=== PATIENT | male | born 1990 | race Caucasian/White ===

== ENCOUNTER 2017-05-24 19:34 | Emergency (ER) | payer MEDICARE, MEDICAID ==
[~2017-05-24 19:34] MED LIST: ANAFRANIL25 MG PO; BENADRYL-DPS25 MG PO; CATAPRES0.2 MG PO; CLONAZEPAM2 MG PO; COMPAZINE DPS5 MG PO; DILANTIN DPS100 MG PO; HYDROCODON-ACE1 EAC4 PO; LAMICTAL DPS100 MG PO; MILK OF MAGNESI10 ML PO; MOTRIN-DPS600 MG PO; PRILOSEC DPS20 MG PO; SENOKOT S1 TAB PO; SURFAK DPS240 MG PO; THERA1 EACH PO; TOPAMAX100 MG PO; TOPAMAX200 M1 PO; [UNRECOGNIZED DRUG - OTHER] PO
--- NOTE | 2017-06-01 15:15 | ER ---
ADMIT: 05/24/2017 [place] [facility] [place] [id number] [address] [id number] JULIO PALENCIA [address] [facility] [place] [address] Emergency Room Report SEX: M AGE: 26 : 1990 DATE: 05/24/2017 ADDENDUM: This patient was originally seen by Nancy Marie. He is nonverbal, autistic, coming in with abdominal pain. He has vomited every day for the last 3 days in the morning, but he does seem to eat in the evening and afternoon. On physical exam, his abdomen is soft. CT scan of his abdomen showed a very distended bladder. We did have him urinate and then did a postvoid bladder scan, which showed 100 mL in the bladder. He did void quite a large amount. His white count was normal. He does have a history of having pancreatitis, but he had a normal lipase today. DIAGNOSIS: Urinary retention. We will have him follow up with his primary as needed. He already has a scheduled appointment this week. Please see my T- sheet. SAMINA Valiente / Lencho Hassan MD / aren JOB #: [id number] CC: Lencho Hassan MD, Attending Physician Sameer Snow MD, Family Physician
== END 2017-05-24 22:50 | disposition home or self-care (01) ==
LOC: ER 19:34
PROC: BT20ZZZ Computerized Tomography (CT Scan) of Bladder (ICD-10-PCS; principal; 2017-05-24)
DX: R33.9 Retention of urine, unspecified (principal); G40.909 Epilepsy, unspecified, not intractable, without status epilepticus; F42.9 Obsessive-compulsive disorder, unspecified; Z88.0 Allergy status to penicillin; Z88.5 Allergy status to narcotic agent; Z88.1 Allergy status to other antibiotic agents; Z79.899 Other long term (current) drug therapy